=== PATIENT | female | born 1980 | race Caucasian/White ===

== ENCOUNTER → 2020-09-20 | Emergency (ER) | payer OTHER ==
[~2020-09-20] VITALS: Ht 175.3 cm; Wt 63.5 kg
[~2020-09-20] MED LIST: CIPRO500 MG PO; PYRIDIUM100 M1 PO; TYLENOL325 MG
== END | disposition home or self-care (01) ==
LOC: ER 11:56
DX: N39.0 Urinary tract infection, site not specified (principal); R30.0 Dysuria; B96.29 Other Escherichia coli [E. coli] as the cause of diseases classified elsewhere

== ENCOUNTER 2020-11-27 14:41 | Outpatient (CLI) | payer OTHER | END 2020-11-27 14:48 | disposition home or self-care (01) | LOC: MAMO-SONO 14:41 | DX: Z12.31 Encounter for screening mammogram for malignant neoplasm of breast (principal) ==

== ENCOUNTER → 2020-12-01 14:11 | Outpatient (CLI) | payer OTHER | END | disposition home or self-care (01) | LOC: RAD 14:11 | DX: R07.89 Other chest pain (principal); R06.09 Other forms of dyspnea ==